=== PATIENT | female | born 1985 | race Caucasian/White ===

== ENCOUNTER 2023-02-25 14:30 | Emergency (ER) | payer BC, OTHER ==
[2023-02-25 14:41] VITALS: BP 131/92; PULSE 69; RESP 16; TEMP 98
--- NOTE | 2023-02-25 15:07 | ED ---
Wound/Laceration HPI - General Source: patient, RN notes reviewed Mode of arrival: ambulatory Limitations: no limitations <Da Valenzuela - Last Filed: 02/25/23 15:07> <Mark Verdugo - Last Filed: 02/27/23 05:13> - General Chief Complaint: Wound/Laceration Stated Complaint: left hand laceration Time Seen by Provider: 02/25/23 15:07 - History of Present Illness Initial Comments: 38-year-old female presents emergency Department left hand thumb laceration. Patient states his happened using a chisel. (Da Valenzuela) 38-year-old female presenting with chief complaint of laceration. Laceration on the left hand proximal thumb. Patient was using a chisel for a home improvement project. Her tetanus is up-to-date. She has full range of motion and sensation. (Mark Verdugo) - Related Data Previous Rx's Medication Instructions Recorded Amoxicillin/Potassium Clav 1 tab PO Q12HR #20 tab 03/05/16 [Augmentin 875-125 Tablet] Ibuprofen [Motrin] 600 mg PO Q6HR PRN #20 tab 03/05/16 traMADol HCl [Ultram] 50 mg PO Q4H PRN #20 tab 03/15/16 Allergies Allergy/AdvReac Type Severity Reaction Status Date / Time gluten Allergy Unknown Verified 03/15/16 01:46 soy Allergy Unknown Verified 03/15/16 01:46 Review of Systems ROS Other: All systems not noted in ROS Statement are negative. <Da Valenzuela - Last Filed: 02/25/23 15:07> ROS Other: All systems not noted in ROS Statement are negative. <Mark Verdugo - Last Filed: 02/27/23 05:13> ROS Statement: Those systems with pertinent positive or pertinent negative responses have been documented in the HPI. Past Medical History Past Medical History: Thyroid Disorder History of Any Multi-Drug Resistant Organisms: None Reported Past Surgical History: Section Past Psychological History: No Psychological Hx Reported Past Alcohol Use History: Occasional Past Drug Use History: Marijuana <Da Valenzuela - Last Filed: 02/25/23 15:07> General Exam Limitations: no limitations <Da Valenzuela - Last Filed: 02/25/23 15:07> Limitations: no limitations General appearance: alert, in no apparent distress Head exam: Present: atraumatic, normocephalic, normal inspection Eye exam: Present: normal appearance, EOMI Neck exam: Present: normal inspection, full ROM Respiratory exam: Absent: respiratory distress Neurological exam: Present: alert, oriented X3, CN II-XII intact Psychiatric exam: Present: normal affect, normal mood Expanded Type of lesion: Present: laceration (4 cm laceration left hand proximal thumb) <Mark Verdugo - Last Filed: 02/27/23 05:13> - General Exam Comments Initial Comments: Visual Physical Exam Vital signs reviewed General: Well-appearing, nontoxic, no acute distress. Head: Normocephalic, atraumatic Eyes: PERRLA, EOMI ENT: Airway patent Chest: Nonlabored breathing Skin: No visual rash, normal skin tone Neuro: Alert and oriented 3 Musculoskeletal: No gross abnormalities (Da Valenzuela) Course Vital Signs 02/25/23 14:35 Temperature 98 F Pulse Rate 69 Respiratory 16 Rate Blood Pressure 131/92 O2 Sat by Pulse 98 Oximetry Procedures - Laceration Laceration #1 Consent Obtained: verbal consent Indication: laceration Site: hand Size (cm): 4 Description: linear Depth: simple, single layer Anesthetic Used: lidocaine 1%, without epi Anesthesia Technique: local infiltration Pre-repair: wound explored, irrigated extensively Type of Sutures: nylon Size of Sutures: 4-0 Number of Sutures: 5 Technique: simple, interrupted Patient Tolerated Procedure: well <Mark Verdugo - Last Filed: 02/27/23 05:13> Medical Decision Making <Da Valenzuela - Last Filed: 02/25/23 15:07> <Mark Verdugo - Last Filed: 02/27/23 05:13> - Medical Decision Making I performed a quick note portion of this chart signed Da Valenzuela PA-C (Da Valenzuela) Was pt. sent in by a medical professional or institution (DESIRAE Hart, DOCUMENT MANAGER, urgent care, hospital, or usp...) When possible be specific @ -No Did you speak to anyone other than the patient for history (EMS, parent, family, police, friend...)? What history was obtained from this source @ -No Did you review nursing and triage notes (agree or disagree)? Why? @ -I reviewed and agree with nursing and triage notes Were old charts reviewed (outside hosp., previous admission, EMS record, old EKG, old radiological studies, urgent care reports/EKG's, usp records)? Report findings @ -No old charts were reviewed Differential Diagnosis (chest pain, altered mental status, abdominal pain women, abdominal pain men, vaginal bleeding, weakness, fever, dyspnea, syncope, headache, dizziness, GI bleed, back pain, seizure, CVA, palpatations, mental health, musculoskeletal)? @ -not applicable EKG interpreted by me (3pts min.). @ -As above X-rays interpreted by me (1pt min.). @ -None done CT interpreted by me (1pt min.). @ -None done U/S interpreted by me (1pt. min.). @ -None done What testing was considered but not performed or refused? (CT, X-rays, U/S, labs)? Why? @ -None What meds were considered but not given or refused? Why? @ -None Did you discuss the management of the patient with other professionals (professionals i.e. , PA, DOCUMENT MANAGER, lab, RT, psych nurse, criminal justice social worker, copy machine operator, teacher, foreign service officer, case consultant)? Give summary @ -No Was smoking cessation discussed for >3mins.? @ -No Was critical care preformed (if so, how long)? @ -No Were there social determinants of health that impacted care today? How? (Homelessness, low income, unemployed, alcoholism, drug addiction, transportation, low edu. Level, literacy, decrease access to med. care, longterm, rehab)? @ -No Was there de-escalation of care discussed even if they declined (Discuss DNR or withdrawal of care, Hospice)? DNR status @ -No What co-morbidities impacted this encounter? (DM, HTN, Smoking, COPD, CAD, Cancer, CVA, ARF, Chemo, Hep., AIDS, mental health diagnosis, sleep apnea, morbid obesity)? @ -None Was patient admitted / discharged? Hospital course, mention meds given and route, prescriptions, significant lab abnormalities, going to OR and other pertinent info. @ -38-year-old female presenting with chief complaint of left hand laceration. Tetanus is up-to-date. Neurovascularly intact. Laceration is repaired patient is educated on wound care. See procedure note for details. Follow-up with PCP. Report back to ER with any new or worsening symptoms. Discussed return parameters and answered all questions. Patient conveyed verbal understanding and agreed to the plan. I discussed this case in detail with my attending Dr. Emery Undiagnosed new problem with uncertain prognosis? @ -No Drug Therapy requiring intensive monitoring for toxicity (Heparin, Nitro, Insulin, Cardizem)? @ -No Were any procedures done? @ -Laceration repair Diagnosis/symptom? @ -Laceration Acute, or Chronic, or Acute on Chronic? @ -Acute Uncomplicated (without systemic symptoms) or Complicated (systemic symptoms)? @ -Uncomplicated Side effects of treatment? @ -No Exacerbation, Progression, or Severe Exacerbation? @ -No Poses a threat to life or bodily function? How? (Chest pain, [place], NH, pneumonia, PE, COPD, DKA, ARF, appy, cholecystitis, CVA, Diverticulitis, Homicidal, Suicidal, threat to staff... and all critical care pts) @ -No (Mark Verdugo) Disposition <Da Valenzuela - Last Filed: 02/25/23 15:07> Is patient prescribed a controlled substance at d/c from ED?: No Time of Disposition: 17:56 <Mark Verdugo - Last Filed: 02/27/23 05:13> Clinical Impression: Laceration Disposition: HOME SELF-CARE Condition: Good Instructions (If sedation given, give patient instructions): Care For Your Stitches (ED), Laceration (ED) Additional Instructions: Follow-up with PCP. Report back to ER with any new or worsening symptoms. Keep the wound clean, dry, and covered. Avoid prolonged submersion, such as swimming or baths. Wash daily with soap and water. Sutures may be removed in 10-14 days. Monitor for signs of infection, including but not limited to redness, swelling, warmth, tenderness, discharge. Referrals: None,Stated [Primary Care Provider] - 1-2 days
[2023-02-25] MEDS ORDERED: LIDOCAINE 1% INJ 10MG/ML (20 ML MDV) SQ ONE (17:17)
== END 2023-02-25 18:57 | disposition home or self-care (01) ==
LOC: EC 14:30
DX: S61.012A Laceration without foreign body of left thumb without damage to nail, initial encounter (principal); F12.90 Cannabis use, unspecified, uncomplicated; Z91.018 Allergy to other foods; W31.2XXA Contact with powered woodworking and forming machines, initial encounter
CPT/HCPCS: 12002; 99282; J2001

== ENCOUNTER → 2023-10-23 | Outpatient (CLI) | payer OTHER ==
--- NOTE | 2023-10-23 12:50 | US ---
EXAMINATION TYPE: US abdomen limited DATE OF EXAM: 10/23/2023 COMPARISON: NONE CLINICAL INDICATION: Female, 38 years old with history of R19.09 ABD MASS; LLE swelling with groin bu rning with certain movements; Doctor felt lump TECHNIQUE: FINDINGS: Irregular, hypoechoic, avascular, area with multiple echogenic foci seen at AOC = 0.9 x 1. 1 x 1.1 cm IMPRESSION: 1. Fullness at the left inguinal region. Inguinal hernia should be suspected. Additional evaluation w ith CT can BE performed.
--- NOTE | 2023-10-23 13:03 | US ---
EXAMINATION TYPE: US venous doppler duplex LE LT DATE OF EXAM: 10/23/2023 9:08 AM COMPARISON: NONE CLINICAL INDICATION: Female, 38 years old with history of R22.42 SWELLING LEFT LOW LEG; SIDE PERFORMED: Left TECHNIQUE: The lower extremity deep venous system is examined utilizing real time linear array sonog chelsey with graded compression, doppler sonography and color-flow sonography. VESSELS IMAGED: Common Femoral Vein Deep Femoral Vein Greater Saphenous Vein * Femoral Vein Popliteal Vein Small Saphenous Vein * Proximal Calf Veins (* superficial vessels) Right Leg: NA Left Leg: Negative for DVT IMPRESSION: 1. Left lower extremity ultrasound negative for deep venous thrombosis.
== END | disposition home or self-care (01) ==
LOC: RADUSWWP 08:40
PROVIDERS: ATTEND Family Medicine
DX: R22.42 Localized swelling, mass and lump, left lower limb (principal); R19.04 Left lower quadrant abdominal swelling, mass and lump
CPT/HCPCS: 76705